=== PATIENT | female | born 1955 | race Caucasian/White ===

== ENCOUNTER 2017-04-12 10:02 | Outpatient (CLI) | payer OTHER ==
--- NOTE | 2017-04-12 10:37 | RAD ---
PELVIC RADIOGRAPH: Date: 04-12-17 Provided Clinical History: Back pain. FINDINGS: There is no evidence for fracture or other acute osseous abnormality. Alignment appears anatomic. Naomi nt spaces appear preserved. Degenerative changes are seen involving the pubic symphysis. There is bradley e irregularity to the margins of the pubic symphysis suggesting the possibility of remote injury. The re is a bone island involving the left superior acetabular iliac bone. No concerning lytic or blastic lesions are evident. 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 Otherwise unremarkable pelvic radiograph. POS: [facility]
== END 2017-04-12 10:03 | disposition home or self-care (01) ==
LOC: RAD 10:02
PROVIDERS: ATTEND Family Medicine
DX: I12.9 Hypertensive chronic kidney disease with stage 1 through stage 4 chronic kidney disease, or unspecified chronic kidney disease (principal); E11.22 Type 2 diabetes mellitus with diabetic chronic kidney disease; N18.2 Chronic kidney disease, stage 2 (mild); I25.10 Atherosclerotic heart disease of native coronary artery without angina pectoris; K21.9 Gastro-esophageal reflux disease without esophagitis; N39.0 Urinary tract infection, site not specified; E03.9 Hypothyroidism, unspecified; R80.9 Proteinuria, unspecified; E78.5 Hyperlipidemia, unspecified; M19.90 Unspecified osteoarthritis, unspecified site
CPT/HCPCS: 72170

== ENCOUNTER 2017-04-19 13:49 | Outpatient (CLI) | payer OTHER ==
--- NOTE | 2017-04-19 15:13 | ULT ---
BILATERAL RENAL ULTRASOUND WITH DOPPLER (BAEZ-SCALE, COLOR-FLOW, AND SPECTRAL DOPPLER): HISTORY: Renal failure. FINDINGS: The right kidney measures 12.1 cm in length, and the left kidney measures 10.1 cm in length. A 1.3 c m cyst is seen arising from the superior pole of the right kidney. No hydronephrosis is seen on eith er side. The peak systolic velocity in the right renal artery measures 113 cm per second and in the left renal artery measures 124 cm per second. The renal artery to aortic ratio is measured at 1.6 on the right and 1.7 on the left. The resistive indices measure 0.6 bilaterally. IMPRESSION: 1. Right renal cyst. 2. No definite evidence of hemodynamically significant renal artery stenosis. Further evaluation wi CTA would be helpful. POS: [facility]
== END 2017-04-19 13:50 | disposition home or self-care (01) ==
LOC: ULT 13:49
PROVIDERS: ATTEND Internal Medicine Nephrology
DX: E11.22 Type 2 diabetes mellitus with diabetic chronic kidney disease (principal); N18.2 Chronic kidney disease, stage 2 (mild); E78.5 Hyperlipidemia, unspecified; I25.10 Atherosclerotic heart disease of native coronary artery without angina pectoris; R80.9 Proteinuria, unspecified; M19.90 Unspecified osteoarthritis, unspecified site; K21.9 Gastro-esophageal reflux disease without esophagitis; E03.9 Hypothyroidism, unspecified; N28.1 Cyst of kidney, acquired
CPT/HCPCS: 76700; 76770